=== PATIENT | female | born 1955 | race Caucasian/White ===

== ENCOUNTER 2017-11-06 01:21 | Outpatient (CLI) | payer BC, SELFPAY ==
--- NOTE | 2017-11-06 10:35 | DI.MAMMO_ITS ---
SYMPTOMS/DIAGNOSIS: SCREENING, Z12.31 MAMMOGRAM: Mammograms were interpreted according to the usual protocol including computer analysis with CAD system, tomosynthesis and C view imaging. The breasts are of moderate density with fairly symmetrical distribution of fibroglandular tissue. No dominant mass or clumped microcalcification is identified in either breast. Current examination is compared with the previous examinations including August 2014 and there has been no gross interval change in appearance in comparison with the previous studies. CONCLUSION: No specific evidence of malignancy at this time. Routine screening examinations are suggested at yearly intervals due to the family history of breast carcinoma. Category 1, breast density category B. MQSA ASSESSMENT OF FINDINGS: Negative. Category 1. Patient will receive a letter notifying them of these results. BI-RADS category B. There are scattered areas of fibroglandular density.
== END 2017-11-06 01:41 ==
PROVIDERS: PCP Family Medicine; Visit Provider Family Medicine
DX: Z12.31 Encounter for screening mammogram for malignant neoplasm of breast (principal); Z80.3 Family history of malignant neoplasm of breast
CPT/HCPCS: 77063; 77067

== ENCOUNTER 2018-02-20 10:19 | Outpatient (CLI) | payer BC, SELFPAY ==
[2018-02-20 13:06] LABS: HCT 41.5 % (36.0-46.0); HGB 13.7 g/dL (12.0-15.5); Mean Corpuscular Hemoglobin 28.8 pg (27.0-33.0); Mean Corpuscular Volume 87.4 fL (80-95); Mean Platelet Volume 9.7 fL (8.0-11.0); Platelet Count 239 x1000/uL (130-400); RBC 4.75 m/cumm (4.00-5.20); RBC Distribution Width 14.7 % (11.7-14.6); White Blood Cell Count 4.72 k/cumm (4.4-10.8)
[2018-02-20 13:36] LABS: Iron 66 ug/dL (50-175); Total Iron Binding Capacity 312 ug/dL (250-450); Transferrin Sat 21 % (15-50)
[2018-02-20 13:48] LABS: ALT 26 U/L (12-78); AST 19 U/L (15-37); Alkaline Phosphatase 71 U/L (46-116); Anion Gap 7.4 mmol/L (3-11); BUN 25 mg/dL (7-18); Bilirubin, Total 0.4 mg/dL (0.2-1.0); CO2 28.6 mmol/L (21.0-32.0); CREATININE 0.88 mg/dL (0.55-1.02); Calcium 9.4 mg/dL (8.5-10.1); Chloride 104 mmol/L (98-107); Glucose 94 mg/dL (70-100); Potassium 4.4 mmol/L (3.5-5.1); Sodium 140 mmol/L (136-145); TSH (W/Ref FT4) 4.12 uIU/mL (0.358-3.74); Total Protein 7.5 g/dL (6.4-8.2)
[2018-02-20 14:49] LABS: FREE T4 0.98 ng/dL (0.76-1.46)
== END 2018-02-20 10:39 ==
PROVIDERS: PCP Family Medicine; Visit Provider Family Medicine
DX: Z00.00 Encounter for general adult medical examination without abnormal findings (principal); N93.8 Other specified abnormal uterine and vaginal bleeding
CPT/HCPCS: 36415; 80053; 85027; 83540; 83550; 84439; 84443

== ENCOUNTER 2018-02-20 11:14 | Outpatient (REF) | payer BC, SELFPAY ==
--- NOTE | 2018-02-20 09:45 | PAPFT_PTH ---
PATIENT: Poornima Romano LOC: [facility] U#:[id number] AGE/SX: 62/F ROOM: RE02/20/[address]: Sara España MD, DC : 1955 BED: DIS: 02/20/2018 SPEC #: [id number] RECD: 02/20/18 12:52 STATUS: NANCY MIGUEL #: [id number] BLANCA: 02/20/18 09:[address]: Sara España DEPT: [facility] Cytology RECD BY: Elsi Cooper Tissues: 1 - CX/ENDOCX FOR PAP SMEARS Procedures: PAP THIN PREP/UVM Screening HPV DNA PROBE Comments: [id number]
--- NOTE | 2018-02-20 09:45 | ENDOMET_PTH ---
PATIENT: Poornima Romano LOC: [facility] U#:[id number] AGE/SX: 62/F ROOM: RE02/20/[address]: Sara España MD, DC : 1955 BED: DIS: 02/20/2018 SPEC #: [id number] RECD: 02/20/18 11:53 STATUS: NANCY RETj #: [id number] BLANCA: 02/20/18 09:[address]: Sara España DEPT: Surgical Specimen RECD BY: Elsi Cooper Tissues: 1 - ENDOMETRIUM BX/HEYDI Procedures: GROSS AND MICRO LEVEL 4 Comments: [id number]
== END 2018-02-20 11:34 ==
LOC: LBN 11:14
PROVIDERS: PCP Family Medicine; Visit Provider Family Medicine
DX: N93.8 Other specified abnormal uterine and vaginal bleeding (principal); N85.8 Other specified noninflammatory disorders of uterus; N88.8 Other specified noninflammatory disorders of cervix uteri; Z12.4 Encounter for screening for malignant neoplasm of cervix; Z11.51 Encounter for screening for human papillomavirus (HPV)
CPT/HCPCS: 88142; 88305; 87624

== ENCOUNTER 2018-02-26 00:42 | Outpatient (CLI) | payer BC, SELFPAY ==
--- NOTE | 2018-02-26 07:53 | DI.US_ITS ---
SYMPTOMS/DIAGNOSIS: DYSFUNCTIONAL UTERINE BLEEDING, N93.8 PELVIC ULTRASOUND: Transabdominal and transvaginal pelvic ultrasound was performed. The uterus measures 9.2 cm long x 3.2 cm AP x 4.8 cm transverse. The endometrial stripe is within normal limits at .3 cm. The uterus is heterogeneous with at least two discrete masses present. There is a solid mass in the anterior body of the uterus measuring 2.1 x 1.3 x 1.8 cm. There is a hypoechoic mass seen in the posterior body measuring 1.5 x 1 x 1.7 cm. These are most suggestive of uterine fibroids. The left ovary was not visualized transabdominally or transvaginally. No left adnexal mass is seen sonographically. The right ovary measures 2.6 x 1.6 x 1.8 cm and is grossly unremarkable. No free pelvic fluid or hydronephrosis is seen. There do appear to be echogenic foci with in the kidneys bilaterally. These may represent nonobstructing stones or vascular calcifications. IMPRESSION: Fibroid uterus.
== END 2018-02-26 01:02 ==
PROVIDERS: PCP Family Medicine; Visit Provider Family Medicine
DX: N93.8 Other specified abnormal uterine and vaginal bleeding (principal); D25.9 Leiomyoma of uterus, unspecified
CPT/HCPCS: 76830; 76856

== ENCOUNTER 2018-04-29 10:26 | Outpatient (CLI) | payer BC, SELFPAY ==
[2018-04-29 12:36] LABS: HCT 43.5 % (36.0-46.0); HGB 14.4 g/dL (12.0-15.5)
== END 2018-04-29 10:46 ==
PROVIDERS: PCP Family Medicine; Visit Provider Obstetrics & Gynecology
DX: N81.89 Other female genital prolapse (principal); Z01.818 Encounter for other preprocedural examination
CPT/HCPCS: 36415; 86850; 86900; 86901; 85014; 85018

== ENCOUNTER 2018-04-30 06:09 | Observation (INO) | payer BC, SELFPAY ==
[2018-04-29 10:53] VITALS: BP 145/92; PULSE 74; RESP 17; TEMP 36.7; O2SAT 99
[2018-04-30] VITALS (21 sets, daily range): BP systolic 90–131; BP diastolic 55–94; PULSE 60–96; RESP 13–21; TEMP 35.6–36.7; O2SAT 90–97
[2018-04-30] MEDS: Lactated Ringers 1,000 ML 125 ML IV ×4 (07:01→18:26)
--- NOTE | 2018-04-30 08:53 | UTER_PTH ---
PATIENT: Poornima Romano LOC: [facility] U#:[id number] AGE/SX: 62/F ROOM: OBS.301 RE04/30/[address]: Cindy Aguilera : 1955 BED: A DIS: 05/01/2018 SPEC #: [id number] RECD: 04/30/18 12:30 STATUS: NANCY REQ #: [id number] BLANCA: 04/30/18 08:[address]: Vandana Garg DEPT: Surgical Specimen RECD BY: Elsi Cooper ENTERED: 04/30/18 12:32 SP TYPE: UTER OTHR DR: Sara España MD, DC Cindy Aguilera Tissues: 1 - UTERUS PROLAPSE Procedures: GROSS AND MICRO LEVEL 4 IMMUNOPEROXIDASE STAIN Comments: [id number]
[2018-04-30] MEDS: Normal Saline Flush 10 ML SYR IV (18:23)
[2018-04-30] MEDS: Ketorolac 30 MG/ML VIAL IVP (18:23)
[2018-04-30] MEDS: Sertraline 50 MG TAB 100 MG PO (20:19)
[2018-04-30] MEDS: Docusate Sodium 100 MG CAP PO (20:19)
[2018-05-01] MEDS: Ketorolac 30 MG/ML VIAL IVP ×2 (00:08→05:35)
[2018-05-01 00:46] VITALS: BP 105/66; PULSE 86; RESP 18; TEMP 36.8; O2SAT 96
[2018-05-01] MEDS: Lactated Ringers 1,000 ML 125 ML IV (01:59)
[2018-05-01 05:00] VITALS: BP 91/56; PULSE 77; RESP 18; TEMP 37; O2SAT 96
[2018-05-01] MEDS: Levothyroxine 50 MCG TAB PO (05:35)
[2018-05-01] MEDS: Normal Saline Flush 10 ML SYR IV ×2 (06:29→09:13)
[2018-05-01 07:12] LABS: HCT 34.3 % (36.0-46.0); HGB 11.2 g/dL (12.0-15.5); Mean Corp. HGB Concentration 32.7 g/dL (32.0-36.0); Mean Corpuscular Hemoglobin 28.9 pg (27.0-33.0); Mean Corpuscular Volume 88.6 fL (80-95); Mean Platelet Volume 9.7 fL (8.0-11.0); Platelet Count 209 x1000/uL (130-400); RBC 3.87 m/cumm (4.00-5.20); RBC Distribution Width 14.7 % (11.7-14.6); White Blood Cell Count 8.31 k/cumm (4.4-10.8)
--- NOTE | 2018-05-01 07:29 | W.PM.PROGNOT ---
Date of Service Date of service: 05/01/18 Time of Service: 07:29 Assessment and Plan (1) H/O vaginal hysterectomy: Current visit: Yes Status: Acute Plan discharge to home later today. Subjective Patient reports: no new complaints, tolerating a regular diet, voiding w/o difficulty, flatus and afebrile Interval history since last seen: POD 1 TVH, RSO. Carter out this am and voiding w/o issues. Exam Const General: comfortable and no acute distress Nutritional Appearance: obese Orientation: alert, awake and oriented x3 Resp Effort & Inspection: normal respiratory effort Auscultation: clear to auscultation bilaterally Cardio Palpation: normal PMI Rate: regular rate Rhythm: regular rhythm GI Inspection: normal to inspection Palpation: soft and no hepatosplenomegaly (no guarding rebound or masses) Percussion: normal to percussion External Female Exam: external appearance normal (vaginal packing removed. small amt serous sanguinous drainage) Skin General skin exam: no rashes or lesions noted Neuro General: normal light touch, pain and propioception Extrem General: normal to inspection, full ROM and normal capillary refill Objective Objective Clinical Data: Abnormal lab results 05/01/18 Range/Units 06:42 RBC 3.87 L (4.00-5.20) m/cumm Hgb 11.2 L D (12.0-15.5) g/dL Hct 34.3 L D (36.0-46.0) % RDW 14.7 H (11.7-14.6) % Vital Signs Temperature 98.6 F 05/01/18 05:00 Temperature Source Tympanic 05/01/18 05:00 Pulse 77 05/01/18 05:00 Pulse Rhythm Regular 05/01/18 00:46 Respiratory Rate 18 05/01/18 05:00 Respiratory Effort 05/01/18 00:46 Respiratory Depth Normal 05/01/18 00:46 Respiratory Pattern Normal 05/01/18 00:46 Blood Pressure 91/56 L 05/01/18 05:00 Pulse Oximetry 96 05/01/18 05:00 Respiratory End-tidal CO2 38 04/30/18 12:45 Oxygen Delivery Method Nasal Cannula 05/01/18 05:00 Oxygen Flow Rate 3 05/01/18 05:00 Fraction of Inspired Oxygen (FIO2) 96 05/01/18 00:46 Pain Level 1 05/01/18 05:35 Comment 04/30/18 21:49 Intake & Output 04/30/18 04/30/18 05/01/18 11:59 23:59 11:59 Intake Total 1750 / 2617.084 867.084 / 2617.084 2689.75 / 2689.75 Output Total 950 / 2860 1910 / 2860 1999 Balance 800 / -242.916 -1042.916 / -242.916 689.75 / 689.75 Weight 152 lb 5.431 oz Intake: IV 1750 / 2577.084 827.084 / 2577.084 2689.75 / 2689.75 Oral 40 / 40 Output: Urine 700 / 2610 0 / 2610 1999 Estimated Blood Loss 250 / 250 Other: Urine Color Pale Bright Red Yellow Yellow Urine Appearance Clear Clear Hematuria Urine Odor None None Comment vaginal bleeding from surgery Emesis Description None None Voiding Methods Toilet Toilet Laboratory Results WBC 8.31 k/cumm (4.4-10.8) 05/01/18 06:42 RBC 3.87 m/cumm (4.00-5.20) L 05/01/18 06:42 Hgb 11.2 g/dL (12.0-15.5) L D 05/01/18 06:42 Hct 34.3 % (36.0-46.0) L D 05/01/18 06:42 MCV 88.6 fL (80-95) 05/01/18 06:42 MCH 28.9 pg (27.0-33.0) 05/01/18 06:42 MCHC 32.7 g/dL (32.0-36.0) 05/01/18 06:42 RDW 14.7 % (11.7-14.6) H 05/01/18 06:42 Plt Count 209 x1000/uL (130-400) 05/01/18 06:42 MPV 9.7 fL (8.0-11.0) 05/01/18 06:42
[2018-05-01 07:32] LABS: ALT 14 U/L (12-78); AST 15 U/L (15-37); Albumin 2.8 g/dL (3.4-5.0); Alkaline Phosphatase 52 U/L (46-116); Anion Gap 6.3 mmol/L (3-11); BUN 12 mg/dL (7-18); Bilirubin, Total 0.4 mg/dL (0.2-1.0); CO2 29.7 mmol/L (21.0-32.0); CREATININE 0.86 mg/dL (0.55-1.02); Calcium 8.5 mg/dL (8.5-10.1); Chloride 103 mmol/L (98-107); Glucose 113 mg/dL (70-100); Potassium 3.6 mmol/L (3.5-5.1); Sodium 139 mmol/L (136-145)
[2018-05-01 09:00] VITALS: BP 113/66; PULSE 66; RESP 21; TEMP 37; O2SAT 96
[2018-05-01] MEDS: Docusate Sodium 100 MG CAP PO (09:04)
[2018-05-01] MEDS: Polyethylene Glycol 3350 17 GM PACKET PO (09:13)
--- NOTE | 2018-05-01 11:01 | W.PM.DS.N ---
Date of service: 05/01/18 Time of Service: 11:02 DS: Diagnosis Discharge Diagnosis (1) H/O vaginal hysterectomy: Status: Acute (2) DUB (dysfunctional uterine bleeding): Status: Acute Discharge Plan Disposition Patient Disposition: HOME Condition: Fair Discharge Details Reason For Visit: vaginal hysterectomy a&p repair Admit Date/Time: 04/30/18 06:09 Admit Provider: Cindy Aguilera Attending Provider: Cindy Aguilera Primary Care Provider: Sara España Hospital Course Hospital Course: Patient was admitted the morning of surgery and underwent a transvaginal hysterectomy with right salpingo-oophorectomy without complications. The left tube and ovary were not visualized at the time of surgery. Postop course was uncomplicated she was able to void spontaneously after Carter catheter was removed. She is ambulatory without difficulty tolerating a regular diet and pain was controlled with ibuprofen. Pathology report is currently pending. She will be discharged home with follow-up with Dr. Garg in approximately 2 weeks. Home Meds and New Rx's Prescriptions: No Action cod liver oil capsule 1 cap PO DAILY RF: 0 cholecalciferol (vitamin D3) 2,000 unit capsule 2,000 unit PO DAILY RF: 0 cetirizine [Zyrtec] 10 MG tablet 1 tab PO HS Qty: 90 RF: 4 sertraline 100 MG tablet 100 mg PO DAILY Qty: 90 RF: 12 levothyroxine 50 MCG tablet 50 mcg PO DAILY Qty: 90 RF: 12 multivitamin [Daily Multiple] 1 EACH tablet 1 ea PO DAILY RF: 0 cephalexin [Keflex] 500 mg Capsule 500 mg PO DIRECTED PRN (Reason: DENTAL PROCEDURE) RF: 0 Discharge Instructions Additional Instructions: Avoid constipation using MiraLAX daily Stand Alone Forms: DSU Post Gynecology Surgery Activity:: Activity as Tolerated Equipment/Supplies:: No Equipment Needed Diet:: As Tolerated Discharge Orders Discharge Orders: Discharge Order (Routine); Ordered 05/01/18 Ordered By: Cindy Aguilera DS: Summary Status at Discharge Functional status at discharge: independent ambulation Time Spent with Patient Less than 30 minutes Exam Const General: comfortable and no acute distress Nutritional Appearance: obese Orientation: alert and oriented x3 Resp Effort & Inspection: normal respiratory effort Auscultation: clear to auscultation bilaterally Cardio Palpation: normal PMI Rate: regular rate Rhythm: regular rhythm GI Inspection: normal to inspection Palpation: soft and no hepatosplenomegaly External Female Exam: external appearance normal (Vaginal packing removed serosanguineous drainage present.) and externally tender (No ecchymosis) Skin General skin exam: no rashes or lesions noted Extrem General: normal to inspection, full ROM and normal capillary refill Psych Appearance: grossly normal Mental Status: mental status grossly normal Speech and Movement: speech and movement normal Mood: congruent mood Affect: normal affect Attitude: cooperative Thought Process: normal DS: Data Vitals/I&O Vitals and I&O: Vital Signs Temperature 98.6 F 05/01/18 05:00 Temperature Source Tympanic 05/01/18 05:00 Pulse 77 05/01/18 05:00 Pulse Rhythm Regular 05/01/18 00:46 Respiratory Rate 18 05/01/18 05:00 Respiratory Effort 05/01/18 00:46 Respiratory Depth Normal 05/01/18 00:46 Respiratory Pattern Normal 05/01/18 00:46 Blood Pressure 91/56 L 05/01/18 05:00 Pulse Oximetry 96 05/01/18 05:00 Respiratory End-tidal CO2 38 04/30/18 12:45 Oxygen Delivery Method Nasal Cannula 05/01/18 05:00 Oxygen Flow Rate 3 05/01/18 05:00 Fraction of Inspired Oxygen (FIO2) 96 05/01/18 00:46 Pain Level 1 05/01/18 05:35 Comment 04/30/18 21:49 Intake & Output 04/30/18 04/30/18 05/01/18 11:59 23:59 11:59 Intake Total 1750 / 2617.084 867.084 / 2617.084 2689.75 / 2689.75 Output Total 950 / 2860 1909 / 2860 1999 Balance 800 / -242.916 -1042.916 / -242.916 689.75 / 689.75 Weight 152 lb 5.431 oz Intake: IV 1750 / 2577.084 827.084 / 2577.084 2689.75 / 2689.75 Oral 40 / 40 Output: Urine 700 / 2610 1910 / 2610 1999 Estimated Blood Loss 250 / 250 Other: Urine Color Pale Bright Red Yellow Yellow Urine Appearance Clear Clear Hematuria Urine Odor None None Comment vaginal bleeding from surgery Emesis Description None None Voiding Methods Toilet Toilet Labs on day of discharge: Labs from last 24 hours 05/01/18 05/01/18 06:42 06:42 WBC 8.31 RBC 3.87 L Hgb 11.2 L D Hct 34.3 L D MCV 88.6 MCH 28.9 MCHC 32.7 RDW 14.7 H Plt Count 209 MPV 9.7 Sodium 139 Potassium 3.6 Chloride 103 Carbon Dioxide 29.7 Anion Gap 6.3 BUN 12 Creatinine 0.86 Estimated GFR/1.73 m2 >= 60.00 Glucose 113 H Calcium 8.5 Total Bilirubin 0.4 AST 15 ALT 14 Alkaline Phosphatase 52 Total Protein 6.0 L Albumin 2.8 L PFSH Social History Smoking/Tobacco Use Status: Never Drug use: Never
--- NOTE | 2018-05-01 16:05 | ROE_ITS ---
DATE OF PROCEDURE: April 30, 2018 PREOPERATIVE DIAGNOSIS: Postmenopausal bleeding, pelvic prolapse. POSTOPERATIVE DIAGNOSIS: Same. PROCEDURE: Vaginal hysterectomy, right salpingo-oophorectomy, anterior posterior colporrhaphy, and u terosacral fixation. SURGEON: Vandana Garg M.D. CHANNELING MACHINE RUNNER: Cindy Aguilera M.D., and Leslie Luna PA-C ANESTHESIA: General, intrathecal. ESTIMATED BLOOD LOSS: 300 cc FLUIDS: Per Anesthesia records. FINDINGS: Fourth-degree uterine prolapse; fourth-degree cystocele; complete midline rectocele. Norm al right ovary and tube. Left ovary and tube were not identified. PROCEDURE: The patient was taken to the Operating Room where she was properly identified. She was t hen placed on the operative table in a dorsal supine position. She was then asked to sit at the side of the bed and an intrathecal was administered without difficulty. She was then placed in the dorsa l supine position and general anesthesia was induced without difficulty. She was then placed in a do rsal lithotomy position and prepped and draped in a normal sterile fashion. A formal time-out proced ure was then performed confirming patient and procedure. A Carter catheter was placed. A short weigh vince speculum was placed posteriorly and a cinch retractor anteriorly. The cervix was visualized, gra sped on the anterior and posterior lip, and the uterus was brought to full descent. A paracervical i njection of 1% lidocaine with epinephrine was then performed. Using the Bovie cautery, the cervix wa s circumferentially incised. The Dominguez scissors were then used to sharply dissect the vagina off of t he cervix. Attention was then turned posteriorly, the posterior cul-de-sac entered sharply, and the short manager proposal ior weighted speculum was changed for a long posterior weighted speculum. The uterosacrals were iden tified bilaterally, cross-clamped x1 with curved Vero clamps, and bilaterally cut and suture ligate d in a Vero fashion with a #0 Vicryl and held. Attention was then turned anteriorly. Using a moist lap, the vagina was dissected again away from th e cervix until the vesicouterine reflection was identified. Then, using the Metzenbaum scissors, the anterior cul-de-sac was entered without difficulty. The curved Sturdivant was then placed anteriorly to protect the bladder well away from the surgical field. The remainder of the broad ligament was take n down with a series of cross clamps x2, cut, and suture ligated with #0 Vicryl to the level of the u teroovarian ligaments. The uteroovarian ligaments were cross clamped x2 bilaterally, cut, free tied x1 with #0 Vicryl, and then suture ligated x1 with #0 Vicryl, and . The uterus and cervix were passed off the field for permanent evaluation. A moist sponge on a stick was then placed and th e pedicles along the pelvic sidewalls were inspected bilaterally and found to be hemostatic. Attention was then turned to the anterior portion of the procedure. The anterior colporrhaphy was fi rst started by clamping laterally with the Allis clamps, injecting 1% lidocaine with epinephrine in t he midline, and using the knife a vertical incision was made to open the anterior vaginal tissue. Us ing the Metzenbaum scissors and a moist sponge, the bladder was dissected well away from the vaginal tissue until the perivesicular fascia was found bilaterally. This was reapproximated with interrupte d sutures of #2-0 Vicryl. The anterior vaginal mucosa was trimmed and reapproximated with #0 Vicryl in a running locked fashion. The Norton portion of the procedure was then performed using #0 Vicryl from an exterior/interior fas ion. #0 Vicryl was sutured in the posterior cuff, incorporating the posterior peritoneum. This was then attached to the patient's left uterosacral. The needle was reached across the posterior periton eum to the opposite uterosacral pedicle and attached to this pedicle. The suture was then weaved aga in back over the posterior peritoneum to the midline and placed interior to exterior and was held. T he vaginal cuff was then closed with #0 Vicryl in a running locked fashion. Attention was then turned to the posterior colporrhaphy and, again, in a similar fashion, the lateral edges of the hymen were grasped bilaterally with Allis clamps. A V-like excision was made on the pe rineum. The posterior vaginal epithelium was undermined and cut to the level above the fascial defec t. The vaginal mucosa was dissected well away until the fascia was identified bilaterally, which was then reapproximated with #2-0 Vicryl in interrupted fashion. The posterior vaginal mucosa was anna ed and closed with #0 Vicryl in a running locked fashion. The area was inspected and found to be hem ostatic. A vaginal pack impregnated with Premarin vaginal cream was then placed. The Carter was left in the bladder. The patient was taken to the Recovery Room in stable condition. Sponge, lap, needle, and instrument counts were correct x2.
== END 2018-05-01 11:50 | disposition home or self-care (01) ==
LOC: PDS 06:17 → OBS 12:28 → PDS 12:29 → OBS 20:49
PROVIDERS: Obstetrics & Gynecology; Admitting Provider Obstetrics & Gynecology Gynecology; PCP Family Medicine; Visit Provider Obstetrics & Gynecology Gynecology
PROC: 0JQC0ZZ Repair Pelvic Region Subcutaneous Tissue and Fascia, Open Approach (ICD-10-PCS; CPT 58260; principal; 2018-04-30 07:30)
PROC: 0JQC0ZZ Repair Pelvic Region Subcutaneous Tissue and Fascia, Open Approach (ICD-10-PCS; CPT 57260; 2018-04-30 07:30)
DX: N93.8 Other specified abnormal uterine and vaginal bleeding (principal); N81.3 Complete uterovaginal prolapse; Z90.710 Acquired absence of both cervix and uterus; Z90.721 Acquired absence of ovaries, unilateral; D25.1 Intramural leiomyoma of uterus; D25.2 Subserosal leiomyoma of uterus; E03.9 Hypothyroidism, unspecified
CPT/HCPCS: 58262; 57260; 36415; 80053; 85027; 88305; 99231; 99238; 88307; 88361; G0378; J0690; J1100; J1200; J1885; J2250; J2405

== ENCOUNTER 2018-10-23 09:28 | Outpatient (CLI) | payer MEDICARE, BC, SELFPAY ==
[2018-10-23 12:26] LABS: TSH (W/Ref FT4) 3.59 uIU/mL (0.36-3.74)
== END 2018-10-23 09:48 ==
PROVIDERS: PCP Family Medicine; Visit Provider Family Medicine
DX: E03.9 Hypothyroidism, unspecified (principal)
CPT/HCPCS: 36415; 84443

== ENCOUNTER 2019-12-01 12:51 | Outpatient (REF) | payer MEDICARE, BC, SELFPAY ==
[2019-12-01 13:30] LABS: ALT 20 U/L (14-59); AST 15 U/L (15-37); Alkaline Phosphatase 78 U/L (46-116); Anion Gap 8.9 mmol/L (3-11); BUN 20 mg/dL (7-18); Bilirubin, Total 0.3 mg/dL (0.2-1.0); CO2 28.1 mmol/L (21.0-32.0); CREATININE 0.84 mg/dL (0.55-1.02); Calcium 9.2 mg/dL (8.5-10.1); Chloride 103 mmol/L (98-107); Glucose 94 mg/dL (74-106); Potassium 4.4 mmol/L (3.5-5.1); Sodium 140 mmol/L (136-145); TSH (W/Ref FT4) 3.01 uIU/mL (0.36-3.74); Total Protein 7.5 g/dL (6.4-8.2)
== END 2019-12-01 13:11 ==
LOC: LBN 12:51
PROVIDERS: PCP Family Medicine; Visit Provider Family Medicine
DX: E03.9 Hypothyroidism, unspecified (principal); R53.83 Other fatigue
CPT/HCPCS: 80053; 84443

== ENCOUNTER 2019-12-22 01:30 | Outpatient (CLI) | payer MEDICARE, BC, SELFPAY ==
--- NOTE | 2019-12-22 13:10 | DI.MAMMO_ITS ---
EXAM: MAMMO SCREENING CLINICAL HISTORY: screening,Z12.39 TECHNIQUE: Bilateral full field digital CC and MLO mammographic images were obtained with 3D tomosyn thesis and utilizing computer aided detection (CAD). COMPARISON: Available for comparison. FINDINGS: Masses/Architectural Distortion: There is a small focal asymmetric density in the retroareolar region of the right breast on the MLO view. It is more prominent compared to the prior examination. Microcalcifications: No suspicious pleomorphic-type are seen. Skin Thickening/Nipple Retraction: None. IMPRESSION: 1. Asymmetric density in the retroareolar region of the right breast on the MLO view. 2. Spot compression view is recommended for further evaluation. Ultrasound may be indicated at that time. BI-RADS Category 0 - Assessment Incomplete: Need additional imaging evaluation Breast Density - Category B - Scattered areas of fibroglandular density A negative radiographic report should not delay biopsy if a dominant or clinically suspicious mass is present. Up to ten percent of cancers are not identified on mammography. A negative report may reinforce clinical impression. Adenosis and dense breasts may obscure an underlying neoplasm. False positive reports average 6 to 10%. Patient will receive a letter notifying them of these results.
== END 2019-12-22 01:50 ==
PROVIDERS: PCP Family Medicine; Visit Provider Family Medicine
DX: Z12.31 Encounter for screening mammogram for malignant neoplasm of breast (principal); R92.8 Other abnormal and inconclusive findings on diagnostic imaging of breast
CPT/HCPCS: 77063; 77067

== ENCOUNTER 2019-12-23 12:26 | Outpatient (CLI) | payer MEDICARE, BC, SELFPAY ==
--- NOTE | 2019-12-23 | DI.MAMMO_ITS ---
EXAM: MG MAMMO SCREEN CALL BACK UNI CLINICAL HISTORY: F/U TO ABNL MAMMO, ASYMMETRIC DENSITY. TECHNIQUE: Craniocaudal and mediolateral oblique Full Field Digital Mammography views of the right b reast with Computer Aided Diagnosis followed by Tomosynthesis. COMPARISON: Priors for comparison. FINDINGS: Mammography/Tomosynthesis: Masses/Architectural Distortion: None seen. Microcalcifictions: No suspicious pleomorphic-type are seen. Skin Thickening/Nipple Retraction: None. IMPRESSION: 1. No evidence of malignancy is noted. 2. Unless there is more urgent need, follow-up screening mammography is recommended, as per [employer] guidelines. 3. The findings were discussed with the patient on the date of the examination. BI-RADS Category 1 - Negative Breast Density - Category B - Scattered areas of fibroglandular density A negative radiographic report should not delay biopsy if a dominant or clinically suspicious mass is present. Up to ten percent of cancers are not identified on mammography. A negative report may reinforce clinical impression. Adenosis and dense breasts may obscure an underlying neoplasm. False positive reports average 6 to 10%. Patient will receive a letter notifying them of these results.
== END 2019-12-23 12:46 ==
PROVIDERS: PCP Family Medicine; Visit Provider Family Medicine
DX: R92.8 Other abnormal and inconclusive findings on diagnostic imaging of breast (principal)
CPT/HCPCS: 77063; 77067

== ENCOUNTER 2020-12-16 03:23 | Outpatient (CLI) | payer MEDICARE, BC, SELFPAY | END 2020-12-16 03:24 | disposition home or self-care (01) | LOC: LBO 03:23 | PROVIDERS: PCP Family Medicine; Visit Provider Family Medicine | DX: E03.9 Hypothyroidism, unspecified (principal) | CPT/HCPCS: 36415; 84443 ==

== ENCOUNTER 2021-10-03 01:55 | Outpatient (CLI) | payer MEDICARE, BC, SELFPAY ==
[2021-10-03 12:53] LABS: ALT 22 U/L (14-59); AST 18 U/L (15-37); Albumin 3.7 g/dL (3.4-5.0); Alkaline Phosphatase 57 U/L (46-116); Anion Gap 8.6 mmol/L (3-11); BUN 18 mg/dL (7-18); Bilirubin, Total 0.5 mg/dL (0.2-1.0); CO2 28.4 mmol/L (21.0-32.0); CREATININE 0.8 mg/dL (0.55-1.02); Chloride 104 mmol/L (98-107); Glucose 96 mg/dL (74-106); Potassium 4.1 mmol/L (3.5-5.1); Sodium 141 mmol/L (136-145); TSH (W/Ref FT4) 3.46 uIU/mL (0.36-3.74); Total Protein 7.6 g/dL (6.4-8.2)
== END 2021-10-03 01:56 | disposition home or self-care (01) ==
LOC: LOS 01:56
PROVIDERS: PCP Family Medicine; Visit Provider Family Medicine
DX: E03.9 Hypothyroidism, unspecified (principal); I10 Essential (primary) hypertension
CPT/HCPCS: 36415; 80053; 84443

== ENCOUNTER 2022-04-24 01:27 | Outpatient (CLI) | payer MEDICARE, BC, SELFPAY ==
--- NOTE | 2022-04-24 07:45 | DI.DEXA_ITS ---
Exam(s) XR DEXA BONE DENSITY W/WO JASWINDER EXAM: XR DEXA BONE DENSITY W/WO JASWINDER CLINICAL HISTORY: osteoporosis,M81.0 TECHNIQUE: Routine DEXA evaluation of the lumbar spine, hip, or forearm. COMPARISON: Prior DEXA scan April 2008 FINDINGS: Performed on a [employer] unit. Lateral image: No compression fracture evident. Lumbar Spine total T-score: -1.0 Hip total T-score:Not done because bilateral hip prostheses. Forearm total T-score: -1.8 IMPRESSION: Bone mineral density measures in the osteopenia range. Fracture risk is moderate. Note: Any spine fracture indicates 5x risk for subsequent spine fracture and 2x risk for subsequent h ip fracture. World Health Organization criteria for BMD interpretation classify patients: Normal...... T- Score at or above -1.0 Osteopenic... T- Score between -1.0 and -2.5 Osteoporosis... T-Score at or below -2.5
--- NOTE | 2022-04-24 07:45 | DI.MAMMO_ITS ---
Exam(s) MAMMO SCREENING EXAM: MAMMO SCREENING CLINICAL HISTORY: screening,Z12.39. TECHNIQUE: Bilateral full field digital CC and MLO mammographic images were obtained with 3D tomosyn thesis and utilizing computer aided detection (CAD). COMPARISON: Prior mammograms were reviewed. FINDINGS: There has been no significant change in the appearance and distribution of the fibroglandular tissue. In the right breast there is a small benign-appearing lymph node towards the upper outer quadrant unc hanged from at least 2012. There are no new spiculated masses nor malignant appearing microcalcification groups. There is no significant architectural distortion nor skin thickening-retraction. IMPRESSION: No radiographic evidence of malignancy. BI-RADS Category 1 - Negative Breast Density - Category B - Scattered areas of fibroglandular density Breast density Category C or D implies that the patient has dense breast tissue. Dense breast tissue can make it harder to find cancer on a mammogram. Dense breast tissue is also associated with an incr eased risk of breast cancer. This information about the result of the mammogram report was provided to the patient to raise their awareness. Use this report when you speak with the patient about their risks for breast cancer, which includes their family history. At that time, you may recommend additional screening tests (Ultrasoun d or MRI) as these tests may add significant information. A negative radiographic report should not delay biopsy if a dominant or clinically suspicious mass is present. Up to ten percent of cancers are not identified on mammography. A negative report may reinforce clinical impression. Adenosis and dense breasts may obscure an underlying neoplasm. False positive reports average 6 to 10%. Patient will receive a letter notifying them of these results.
== END 2022-04-24 01:47 ==
PROVIDERS: PCP Family Medicine; Visit Provider Family Medicine
DX: Z12.31 Encounter for screening mammogram for malignant neoplasm of breast (principal); M81.0 Age-related osteoporosis without current pathological fracture; Z96.643 Presence of artificial hip joint, bilateral; M85.88 Other specified disorders of bone density and structure, other site
CPT/HCPCS: 77063; 77067; 77080

== ENCOUNTER 2022-05-10 04:23 | Outpatient (CLI) | payer MEDICARE, BC, SELFPAY ==
[2022-05-10 13:03] LABS: ALT 23 U/L (14-59); AST 18 U/L (15-37); Alkaline Phosphatase 65 U/L (46-116); BUN 16 mg/dL (7-18); Bilirubin, Total 0.5 mg/dL (0.2-1.0); Calcium 9.5 mg/dL (8.5-10.1); Chloride 106 mmol/L (98-107); Estimated GFR 61.36 (mL/min/1.73m2); Glucose 94 mg/dL (74-106); Potassium 3.7 mmol/L (3.5-5.1); Sodium 142 mmol/L (136-145); TSH (W/Ref FT4) 3.09 uIU/mL (0.36-3.74); Total Protein 7.7 g/dL (6.4-8.2)
== END 2022-05-10 04:24 | disposition home or self-care (01) ==
LOC: LOS 04:23
PROVIDERS: PCP Family Medicine; Visit Provider Family Medicine
DX: E03.9 Hypothyroidism, unspecified (principal); I10 Essential (primary) hypertension
CPT/HCPCS: 36415; 80053; 84443

== ENCOUNTER 2022-09-28 02:45 | Outpatient (CLI) | payer MEDICARE, BC, SELFPAY ==
[2022-10-01 11:56] LABS: Lyme Ab w Rflx to Lyme Confirm Negative (Negative)
[2022-10-02 01:15] LABS: Anaplasma phagocytophilum Negative (Negative); B. miyamotoi PCR Negative (Negative); Babesia divergens/MO-1 Negative (Negative); Babesia duncani Negative (Negative); Babesia microti Negative (Negative); Ehrlichia chaffeensis Negative (Negative); Ehrlichia ewingii/canis Negative (Negative); Ehrlichia muris eauclairensis Negative (Negative)
== END 2022-09-28 02:46 | disposition home or self-care (01) ==
LOC: LOS 02:45
PROVIDERS: PCP Family Medicine; Visit Provider Family Medicine
DX: T14.8XXA Other injury of unspecified body region, initial encounter (principal); W57.XXXA Bitten or stung by nonvenomous insect and other nonvenomous arthropods, initial encounter
CPT/HCPCS: 36415; 87798; 86618

== ENCOUNTER 2023-08-20 02:54 | Outpatient (CLI) | payer MEDICARE, BC, SELFPAY ==
[2023-08-20 13:11] LABS: ALT 26 U/L (14-59); AST 18 U/L (15-37); Alkaline Phosphatase 55 U/L (46-116); Anion Gap 4.5 mmol/L (3-11); BUN 15 mg/dL (7-18); Bilirubin, Total 0.49 mg/dL (0.2-1.0); CO2 32.5 mmol/L (21.0-32.0); CREATININE 0.9 mg/dL (0.55-1.02); Calcium 9.6 mg/dL (8.5-10.1); Calculated LDL 130 mg/dL (<100); Chloride 103 mmol/L (98-107); Cholesterol 215 mg/dL (<200); Estimated GFR 68.77 (mL/min/1.73m2); Glucose 98 mg/dL (74-106); HDL Cholesterol 59 mg/dL (40-60); Sodium 140 mmol/L (136-145); TSH (W/Ref FT4) 3.66 uIU/mL (0.36-3.74); Total Protein 7.8 g/dL (6.4-8.2); Triglyceride 133 mg/dL (<150)
== END 2023-08-20 02:55 | disposition home or self-care (01) ==
LOC: LBO 02:55
PROVIDERS: PCP Family Medicine; Visit Provider Family Medicine
DX: I10 Essential (primary) hypertension (principal); E03.9 Hypothyroidism, unspecified
CPT/HCPCS: 36415; 80053; 80061; 84443

== ENCOUNTER 2024-04-15 01:44 | Outpatient (CLI) | payer MEDICARE, BC, SELFPAY ==
--- NOTE | 2024-04-15 07:00 | DI.MAMMO_ITS ---
Exam(s) MAMMO SCREENING EXAM: MAMMO SCREENING CLINICAL HISTORY: screening,z12.39 TECHNIQUE: Mammograms were interpreted according to the usual protocol including computer analysis w [employer] CAD system, tomosynthesis and C-view imaging. COMPARISON: 2014 through 2022 FINDINGS: The breasts are composed of mainly fatty density , Breast Density category A. No suspicious masses or suspicious microcalcifications are seen. No skin thickening or abnormal axillary lymph nodes are seen. There has been no significant change from prior exams. IMPRESSION: BI-RADS Category 1, Negative mammogram Yearly screening mammography is recommended. Breast Density - Category A, fatty density. A negative radiographic report should not delay biopsy if a dominant or clinically suspicious mass is present. Up to ten percent of cancers are not identified on mammography. A negative report may reinforce clinical impression. Adenosis and dense breasts may obscure an underlying neoplasm. False positive reports average 6 to 10%. Patient will receive a letter notifying them of these results.
== END 2024-04-15 02:04 ==
LOC: DI 01:44
PROVIDERS: PCP Family Medicine; Visit Provider Family Medicine
DX: Z12.31 Encounter for screening mammogram for malignant neoplasm of breast (principal); R92.313 Mammographic fatty tissue density, bilateral breasts
CPT/HCPCS: 77063; 77067

== ENCOUNTER 2024-07-31 01:39 | Outpatient (CLI) | payer MEDICARE, BC, SELFPAY ==
[2024-07-31 13:35] LABS: ALT 28 U/L (14-59); AST 22 U/L (15-37); Albumin 3.8 g/dL (3.4-5.0); Alkaline Phosphatase 79 U/L (46-116); Anion Gap 7.9 mmol/L (3-11); BUN 15 mg/dL (7-18); Bilirubin, Total 0.6 mg/dL (0.2-1.0); CO2 31.1 mmol/L (21.0-32.0); CREATININE 1.1 mg/dL (0.55-1.02); Calcium 9.3 mg/dL (8.5-10.1); Calculated LDL 72 mg/dL (<100); Chloride 102 mmol/L (98-107); Cholesterol 142 mg/dL (<200); Estimated GFR 53.72 (mL/min/1.73m2); Glucose 84 mg/dL (74-106); HDL Cholesterol 54 mg/dL (>or=50); Potassium 3.9 mmol/L (3.5-5.1); Sodium 141 mmol/L (136-145); TSH (W/Ref FT4) 3.78 uIU/mL (0.36-3.74); Total Protein 7.5 g/dL (6.4-8.2); Triglyceride 83 mg/dL (<150)
[2024-07-31 14:04] LABS: FREE T4 0.98 ng/dL (0.76-1.46)
[2024-07-31 19:39] LABS: Hepatitis C Ab w Rflx HCV PCR Negative (Negative)
== END 2024-07-31 01:40 | disposition home or self-care (01) ==
LOC: LOS 01:39
PROVIDERS: PCP Family Medicine; Visit Provider Family Medicine
DX: Z11.59 Encounter for screening for other viral diseases (principal); I10 Essential (primary) hypertension; E03.9 Hypothyroidism, unspecified
CPT/HCPCS: 36415; 80053; 80061; 86803; 84439; 84443

== ENCOUNTER 2024-10-06 01:17 | Outpatient (CLI) | payer MEDICARE, BC, SELFPAY ==
--- NOTE | 2024-10-06 08:00 | DI.US_ITS ---
Exam(s) US SOFT TISS ABD WALL/LOW BACK EXAM: US SOFT TISS ABD WALL/LOW BACK CLINICAL HISTORY: LLQ mass, no pain,R19.04. TECHNIQUE: Ultrasound was performed using standard protocol. COMPARISON: US US PELVIS TRANSVAGINAL from 02/26/2018 FINDINGS: Dedicated ultrasound examination of the area of concern in the left lower quadrant (site of lump) was performed. Images are submitted for interpretation. There is an abdominal wall hernia at this level with hernia sac measuring approximately 4 by 1.3 x 3.8 cm and containing mesenteric fat. The width of the neck is 2.6 cm. IMPRESSION: Findings are consistent with a fat containing hernia at the area of clinical concern as described above. This does not appear to contain bowel loops when the patient is in the supine position (as during this examination). DATA REPOSITORY:
== END 2024-10-06 01:37 ==
PROVIDERS: PCP Family Medicine; Visit Provider Family Medicine
DX: K43.9 Ventral hernia without obstruction or gangrene (principal)
CPT/HCPCS: 76705

== ENCOUNTER → 2024-11-02 08:45 | Outpatient (BNVA) | payer MEDICARE, BC, SELFPAY | PROVIDERS: PCP Family Medicine; Referring Provider Family Medicine; Visit Provider Student in an Organized Health Care Education/Training Program | DX: R19.04 Left lower quadrant abdominal swelling, mass and lump (principal); K46.9 Unspecified abdominal hernia without obstruction or gangrene; R10.32 Left lower quadrant pain; R10.12 Left upper quadrant pain | CPT/HCPCS: 99213 ==

== ENCOUNTER 2024-11-16 03:31 | Outpatient (CLI) | payer MEDICARE, BC, SELFPAY ==
[2024-11-16] MEDS: Barium Sulfate 2% W/V-Creamy Vanilla Smoothie 450 ML BTL PO (08:48)
[2024-11-16] MEDS: Barium Sulfate 2% W/V-Berry Smoothie 450 ML BTL PO (08:48)
[2024-11-16 09:32] LABS: Estimated GFR 68.35 (mL/min/1.73m2)
[2024-11-16] MEDS: Omnipaque 350 MG/ML 100 ML BTL IJ (11:13)
[2024-11-16] MEDS: Normal Saline - Diluent 50 ML VIAL IJ (11:15)
[2024-11-16] MEDS: Normal Saline Flush 10 ML SYR IVP (11:15)
--- NOTE | 2024-11-16 11:25 | DI.CT_ITS ---
Exam(s) CT ABDOMEN PELVIS W EXAM: CT ABDOMEN PELVIS W CLINICAL HISTORY: LLQ pain, evaluate LLQ hernia,llq abd mass,r19.04,k46.9. TECHNIQUE: Imaging Protocol: Axial computed tomography images with coronal and sagittal reformatted images were created and reviewed CONTRAST MATERIAL: Intravenous: Omnipaque 350 Contrast volume:100 ml Oral: yes COMPARISON: CT ABD PELVIS WITH CONTRAST from 04/14/2008 US US SOFT TISS ABD WALL/LOW BACK from 10/06/2024 FINDINGS: ABDOMEN and PELVIS: Lung Bases: No acute findings. Liver: Normal density. No suspicious mass. Gallbladder and biliary tract: No radiodense calculus. No wall thickening or pericholecystic fluid. No biliary dilation. Pancreas: Normal density. No abnormal calcifications or inflammatory process. No evidence of mass. Spleen: Normal. Kidneys: Normal size, contour and axis. No radiodense stones. No obstructive uropathy. No suspicious masses seen. Adrenal glands: No masses seen. Vasculature: Abdominal aorta non-dilated. Soft tissues: There is a left lower quadrant, spigelian hernia containing a nonobstructed loop of descending colon. Bladder: Partially obscured by artifact. Bowel: No obstruction. No bowel wall thickening. Appendix normal. Moderate quantity of stool. Peritoneal cavity: No ascites. No focal collection. No mesenteric inflammatory response. No free air. Bones: Bilateral hip prostheses which create artifact. Reproductive organs: There is artifact in the pelvis. The uterus is not visualized, presumed hysterectomy. Lymph nodes: No pathologically enlarged lymph nodes. IMPRESSION:: Left spigelian hernia containing a small nonobstructed loop of descending colon. RADIATION DOSE DELIVERED: Total DLP DATA REPOSITORY: All CT scans at this facility are submitted to the National Radiology Data Registry (NRDR) Dose Index Registry (DIR) with the [employer] (A[employer]). RADIATION OPTIMIZATION: All CT scans at this facility use at least one of these dose optimization techniques: automated exposure control; mA and/or kV adjustment per patient size (includes targeted exams where dose is matched to clinical indication); or iterative reconstruction.
== END 2024-11-16 03:51 ==
LOC: DI 03:31
PROVIDERS: PCP Family Medicine; Visit Provider Student in an Organized Health Care Education/Training Program
DX: Z01.818 Encounter for other preprocedural examination (principal); R19.04 Left lower quadrant abdominal swelling, mass and lump; K46.9 Unspecified abdominal hernia without obstruction or gangrene
CPT/HCPCS: 74177; 82565; J3490

== ENCOUNTER → 2024-11-23 08:42 | Outpatient (BNVA) | payer MEDICARE, BC, SELFPAY | PROVIDERS: PCP Family Medicine; Referring Provider Family Medicine; Visit Provider Student in an Organized Health Care Education/Training Program | DX: K46.9 Unspecified abdominal hernia without obstruction or gangrene (principal); R10.32 Left lower quadrant pain | CPT/HCPCS: 99214 ==

== ENCOUNTER 2024-12-22 05:59 | Day surgery (SDC) | payer MEDICARE, BC, SELFPAY ==
[2024-12-22] VITALS (27 sets, daily range): BP systolic 107–137; BP diastolic 32–87; PULSE 62–80; RESP 11–18; TEMP 36.2–36.7; O2SAT 89–98; BMI 28.4
--- NOTE | 2024-12-22 06:04 | W.ANESPRE ---
General Info Date of Service Date Performed: 12/22/24 Height: 5 ft 0.5 in Weight: 67.132 kg Body Mass Index (BMI): 28.4 Surgical Procedure: Operation Date: 12/22/24 07:40 Proposed Procedure Side Surgeon p Hernia Incisional Laparoscopic, possible Open Kalpana Landin MD Meds Allergies and Home Medications Allergies Allergy/AdvReac Type Severity Reaction Status Date / Time ciprofloxacin Allergy Severe HIVES Verified 12/22/24 06:47 glycopyrrolate Allergy Severe RASH Verified 12/22/24 06:47 meperidine Allergy Severe Anaphylaxsi Verified 12/22/24 06:47 s midazolam Allergy Severe RASH Verified 12/22/24 06:47 Sulfa (Sulfonamide Allergy Severe RASH Verified 12/22/24 06:47 Antibiotics) Latex, Natural Rubber AdvReac Intermediate Itching Verified 12/22/24 06:47 Home Medication Medication Instructions Recorded multivitamin (Daily Multiple 1 ea PO DAILY 10/17/17 tablet) vit C 250 mg-vit E 90 mg-zinc 40 1 tab PO ONCE 12/01/19 mg-copper 1 qg-hrgpvo-laugll capsule (PreserVision AREDS-2) cholecalciferol (vitamin D3) 50 100 mcg PO DAILY 03/14/22 mcg (2,000 unit) capsule fexofenadine 180 mg tablet 180 mg PO DAILY 03/14/22 (Jaye Allergy) hydrochlorothiazide 12.5 mg capsule 12.5 mg PO QAM #90 caps 10/01/24 levothyroxine 50 mcg tablet 50 mcg PO DAILY #90 tab-caps 11/27/24 atorvastatin 10 mg tablet 10 mg PO HS 12/22/24 sertraline 100 mg tablet 100 mg PO HS 12/22/24 Current Visit Medications: Current Medications Generic Name Dose Route Start Last Admin Trade Name Freq PRN Reason Stop Dose Admin Ringer's Solution 1,000 mls @ 80 mls/hr 12/22/24 06:00 IV 12/22/24 23:59 INFUSION LUCIO Cefazolin Sodium/Dextrose 2 gm in 50 mls @ 100 mls/hr 12/22/24 06:00 Ancef Duplex IVPB 12/22/24 23:59 PREOP LUCIO IV Miscellaneous Supplies 1 each 12/22/24 06:00 Iv Access IV 12/22/24 23:59 DIRECTED LUCIO Sodium Chloride 0 ml 12/22/24 06:00 Normal Saline Flush 10 Ml Syr IV 12/22/24 23:59 PRN PRN Sodium Chloride 0 ml 12/22/24 06:00 Normal Saline 10 Ml Vial IJ 12/22/24 23:59 DIRECTED PRN Sterile Water 0 ml 12/22/24 06:00 Water,Injection,Sterile 10 Ml Vial IJ 12/22/24 23:59 DIRECTED PRN PFSH Active Problems Active Problems: Problem Status Onset Code Spigelian hernia Acute K43.9 Hernia Chronic K46.9 LLQ abdominal mass Acute R19.04 Tick bite Acute W57.XXXA Cystocele with incomplete uterovaginal prolapse Acute N81.2 Hypertension Chronic I10 Vaginal irritation Acute N89.8 Cystocele Acute Encounter for fitting and adjustment of pessary Acute Z46.89 Cystocele with rectocele Acute N81.10, N81.6 Chest pain Acute 06/17/06 R07.9 History of bilateral ligation of fallopian tubes Acute Z98.51 Meralgia paresthetica Acute G57.10 Status post hip replacement Acute Z96.649 Depression Chronic 08/10/13 F32.9 Hypothyroidism Chronic 06/21/16 E03.9 Left hip pain Chronic 08/16/14 M25.552 Lumbar radiculopathy, chronic Chronic 08/16/14 M54.16 Uterine prolapse Resolved N81.4 Medical History Medical History Fatigue (07/03/12) Chest pain 06/17/06 ABNL ETT; MPI-NL; CXR-Pneumonia Fatigue 07/03/12 CHRONIC DUB (dysfunctional uterine bleeding) +hpv, - us, -endometrial bx Annual physical exam (08/16/14) Meralgia paresthetica R HIP PIRIFORMIS Surgical History Surgical History H/O vaginal hysterectomy with RSO. Posterior and anterior colporrhaphy. Status post THR (total hip replacement) left History of bilateral tubal ligation Ligation of fallopian tube Total replacement of hip LEFT RIGHT Extraction of cataract DR. RIVERA 10/08/16 RIGHT 10/29/16 LEFT Tobacco Smoking/Tobacco Use Status: Never Passive smoking exposure: Yes Second hand exposure: Yes Alcohol Alcohol Intake: never Substance Use Substance use: Never Substance use type: does not use Prental History History 2 Para Hx # Term Pregnancies 2 Multiple births Hx # Pregnancies Ectopic pregnancies AB induced Hx Number of Living Children AB spontaneous Anesthesia Assessment and Plan Anesthesia History Personal History: PONV Family History: No Family History of Anesthesia Complications Exercise Tolerance Exercise Tolerance: Metabolic Equivalents>4 Pertinent Negatives Pertinent Negatives: No Symptoms of GERD, No Major Cardiovascular Symptoms or Complaints, No Major Pulmonary Symptoms or Complaints and No History of CVA/TIA Cardiac & Pulmonary Exam Cardiac Exam: Normal S1/S2 Heart Sounds Pulmonary Exam: Clear Bilateral Breath Sounds Implantable Cardiac Device Does patient have a Pacemaker or an ICD?: No Airway Exam Known Difficult Airway: No Mallampati Class: 2 Mouth Opening: Narrow (< 3cm) Thyromental Distance: Greater than 3 cm Neck Range of Motion: Full ROM Neck Circumference: Normal Teeth Condition: Normal Dentition ASA Classification ASA Score: ASA 2 Emergency Case?: No NPO Status NPO Status: NPO Clears >2 hours, Solids >8 hours Anesthesia Plan Resuscitation Status: Full Code Anesthesia Technique: General Anesthesia Airway Planned: Endotracheal Tube Monitors Used: Standard Monitors and SedLine
[2024-12-22] MEDS: Lactated Ringers 1,000 ML 80 ML IV (07:00)
[2024-12-22] MEDS: ceFAZolin 2 GM/50 ML BAG IVPB (07:46)
[2024-12-22] MEDS: Bupivacaine 0.25% Pres-Free 30 ML VIAL (09:15)
[2024-12-22] MEDS: Bupivacaine LIPOSOME/PF 133 MG/10 ML VIAL IJ (09:15)
--- NOTE | 2024-12-22 09:44 | W.PM.DSUDISC ---
Date of service: 12/22/24 Discharge Plan Disposition Patient Disposition: Home Condition: Good Discharge Details Reason For Visit: Incisional hernia Attending Provider: Kalpana Landin Primary Care Provider: Sara España Recommendations for Follow Up Recommended tests to be ordered by follow up provider: None. Home Meds and New Rx's Prescriptions: Continued fexofenadine [Jaye Allergy] 180 mg tablet 180 mg PO DAILY cholecalciferol (vitamin D3) 50 mcg (2,000 unit) capsule 100 mcg PO DAILY PreserVision AREDS-2 [id number] mk-spqj-dr-mg capsule 1 tab PO ONCE Rx Instructions: administer with meals hydrochlorothiazide 12.5 mg capsule 12.5 mg PO QAM Qty: 90 4RF multivitamin [Daily Multiple] 1 EACH tablet 1 ea PO DAILY levothyroxine 50 mcg tablet 50 mcg PO DAILY Qty: 90 12RF atorvastatin 10 mg tablet 10 mg PO HS sertraline 100 mg tablet 100 mg PO HS Discharge Instructions Instructions: Abdominal Hernia Repair (DC) Additional Instructions: Your hernia repair went well today. You were able to fix this laparoscopically through 4 small incisions on your abdomen. As discussed previously you should refrain from heavy lifting greater than 15 pounds for 6 weeks following your procedure. An abdominal binder was placed after your procedure. Please try to wear your abdominal binder as much as possible until you are seen for your first follow appointment. If it is rubbing on your incisions you may place it over a T-shirt. You may shower after 24 hours and allow warm soapy water to run over your incisions. Your incisions have skin glue on them which will peel off in 10 to 14 days. Do not rub your incisions but pat dry after showering. Do not soak in a tub until seen at your follow-up appointment. For pain control you may alternate between Tylenol and ibuprofen as tolerated. Ice is also very helpful for pain control postoperatively. A prescription for oxycodone will also be sent to your pharmacy which you may take as needed for pain. If you are taking a narcotic pain medication you may want to take MiraLAX or a different bowel medication to help with constipation. If you have any questions or concerns please contact the general surgery office. Stand Alone Forms: Portal Information Activity:: No lifting >15lbs Shower/Bathe:: 24 hours Diet:: As Tolerated Discharge Orders Discharge Orders: Discharge Order (Routine); Ordered 12/22/24 Ordered By: Kalpana Landin
[2024-12-22] MEDS: fentaNYL 100 MCG/2 ML VIAL IVP ×3 (09:48→10:00)
--- NOTE | 2024-12-22 09:50 | W.PM.OP ---
Operative Note Operative Note PRE-OP DIAGNOSIS: Incisional hernia POST-OP DIAGNOSIS: same PROCEDURE: Laparoscopic incisional hernia repair SURGEON: Kalpana Landin ASSISTING SURGEON: Isaiah Wilson ANESTHESIA TYPE: Local By Surgeon and General LMA/ETT Refer to Anesthesia Record ESTIMATED BLOOD LOSS: 20 PATHOLOGY: none sent COMPLICATIONS: None Patient was transported to: PACU Patient's condition: stable Indications: Patient is a 69-year-old female who was evaluated in clinic for an incisional hernia at the site of a previous port for a gynecologic procedure. She noted that she has had ongoing left lower quadrant pain associated with this hernia and believes it has been increasing in size. She had a preoperative CT and showing this incisional abdominal hernia containing part of the colon. A laparoscopic incisional hernia repair versus possible open incisional hernia repair depending on intraoperative findings was discussed with her at length in the clinic. The risks and benefits of the procedure as well as the recovery was also discussed and consent was obtained prior to the procedure. Findings: Evidence of lateral left lower quadrant hernia with defect measuring 4 x 2 cm. The contents of the hernia were reduced and the fascial defect was closed with a 0 PDS. A 4.5 inch circular Ventralight mesh was then placed to cover the defect and secured with absorbable tacks. Procedure Description: After induction of general anesthesia, the abdomen was prepped and draped in the usual sterile fashion. The procedure was initiated by injecting local anesthesia Matthews's point. A 5 mm incision was then made sharply with a scalpel at Matthews's point and a Veress needle was used to access the peritoneal cavity. The abdomen was then insufflated to 15 mmHg using carbon dioxide. A 5 mm optical trocar was placed in this location followed by a 5 mm 30 degree laparoscope. Upon entry to the abdomen there is no injury to surrounding bowel or other structures. Since the hernia was located in the left lower quadrant two additional 5 mm ports were placed in the right abdomen under direct vision. There was evidence of colon and fat contained within the left lower quadrant hernia. With a combination of blunt dissection and careful dissection with the LigaSure device we were able to reduce the hernia contents. We were then able to see the main defect which measured around 4 x 3 cm. A small 5 mm incision was then made over the central aspect of the hernia. Through this incision the fascial defect was closed with 3 interrupted 0 PDS sutures. This closure was performed under laparoscopic assisted visualization. A 4.5 inch Ventralight mesh was then chosen given appropriate overlap of the defect. After upsizing the right upper quadrant incision to a 10mm port the mesh was then placed into the abdomen through this port and unrolled. The mesh was centered over the hernia defect using the central suture that was preattached to the mesh. This suture was brought out through the previously made 5 mm incision over the central aspect of the hernia. The mesh was then tacked at its periphery using absorbable tacking device to fix the mesh to the abdominal wall. The mesh laid nicely without undue tension, twisting or folding on the abdominal wall. The bowels were inspected and there was no injury. There was no bleeding. The fascia at the 10 mm port site in the right upper quadrant was closed laparoscopically with 0 Vicryl suture. Local anesthesia was then infiltrated into the incisions. Hemostasis was achieved at all incision sites. The incisions were then closed with 4-0 Monocryl. Skin glue was then applied to the incisions. An abdominal binder was placed at the conclusion of the case. The patient tolerated the procedure well. She was awoken, extubated and transported to the recovery room in stable condition. Sponge and instrument counts were correct. Date of Procedure: 12/22/24
--- NOTE | 2024-12-22 09:56 | W.ANESPOSTOP ---
Postoperative Evaluation Date, Time and Location Date Performed: 12/22/24 Time Performed: 09:56 Patient Location: PACU Vital Signs Most Recent Imported Vital Signs: Most Recent Vital Signs Temp Pulse Resp BP Pulse Ox 36.5 C 65 12 129/64 97 12/22/24 09:48 12/22/24 09:55 12/22/24 09:55 12/22/24 09:51 12/22/24 09:55 Pain Score Most Recent Pain Score: Most Recent Pain Score Pain Level 6 12/22/24 09:48 Assessment Mental Status: Awake (Alert & Oriented to Patient Baseline) Airway and Respiratory Function: Patent airway with normal (patient baseline) respiratory exam Cardiovascular Function: Hemodynamically Stable Hydration Status: Adequately Hydrated Nausea & Vomiting: No Nausea or Vomiting Pain: Pain is tolerable per patient Peripheral Nerve Block: Other (intraoperative TAPS block)
[2024-12-22] MEDS: oxyCODONE 5 MG TAB PO (10:37)
== END 2024-12-22 12:00 | disposition home or self-care (01) ==
PROVIDERS: PCP Family Medicine; Visit Provider Student in an Organized Health Care Education/Training Program
PROC: 0WQF4ZZ Repair Abdominal Wall, Percutaneous Endoscopic Approach (ICD-10-PCS; CPT 49593; principal; 2024-12-22 07:30)
DX: K43.2 Incisional hernia without obstruction or gangrene (principal)
CPT/HCPCS: 49593; C1781; J0131; J0665; J0666; J0690; J1100; J1885; J2003; J2371; J2405; J2704; J3010; J3475

== ENCOUNTER → 2025-01-04 08:15 | Outpatient (BNVA) | payer MEDICARE, BC, SELFPAY | PROVIDERS: PCP Family Medicine; Referring Provider Family Medicine; Visit Provider Student in an Organized Health Care Education/Training Program | DX: Z09 Encounter for follow-up examination after completed treatment for conditions other than malignant neoplasm (principal); K43.9 Ventral hernia without obstruction or gangrene | CPT/HCPCS: 99213 ==

== ENCOUNTER → 2025-02-01 07:46 | Outpatient (BNVA) | payer MEDICARE, BC, SELFPAY | PROVIDERS: PCP Family Medicine; Referring Provider Family Medicine; Visit Provider Student in an Organized Health Care Education/Training Program | DX: Z48.815 Encounter for surgical aftercare following surgery on the digestive system (principal); K46.9 Unspecified abdominal hernia without obstruction or gangrene | CPT/HCPCS: 99024 ==